=== PATIENT | male | born 1980 | race Caucasian/White ===

== ENCOUNTER → 2023-06-08 13:44 | Outpatient (CLI) | payer OTHER, SELFPAY ==
--- NOTE | 2023-06-08 13:47 | DI.MRI.S_ITS ---
PROCEDURE: MR ELBOW RT WO CON INDICATIONS: RIGHT BICEPS TENDINOPATHY TECHNIQUE: Noncontrast coronal proton density fast spin echo and T2 fast spin echo with fat saturation, axial and sagittal T1 spin echo and T2 fast spin echo with fat saturation through the elbow. COMPARISON: None. FINDINGS: Image quality: Excellent. Lateral structures: The lateral ulnar collateral ligament and radial collateral ligament both appear intact. Mild tendinosis of the common extensor tendon origin with focal, low-grade tear (series 6, image 18). Medial structures: The ulnar collateral ligament appears intact. The overlying common flexor tendon appears normal. The ulnar nerve appears normal in size and signal within the cubital tunnel. Anterior structures: The distal biceps tendon about the radial tuberosity is incompletely imaged on axial images, limiting evaluation. Otherwise the distal biceps tendon is unremarkable. No thickening or tear of the distal biceps tendon. No radial bicipital bursitis. The brachialis tendon is unremarkable. Posterior structures: The conjoint triceps tendon from the long and lateral heads appears intact. The medial head of the triceps tendon also appears normal, with direct muscle insertion onto the olecranon. No olecranon bursal fluid. Bone and cartilage: No bone marrow contusions or fractures. No osteochondral injuries. IMPRESSION: 1. Unremarkable distal biceps tendon. 2. Mild tendinosis of the common extensor tendon origin with focal, low-grade tear. Dictated by: Valarie Bazan M.D. on 06/08/2023 at 19:18 Approved by: Valarie Bazan M.D. on 06/08/2023 at 19:23
== END ==
PROVIDERS: PCP General Practice; Referring Provider Physical Medicine & Rehabilitation Pain Medicine; Visit Provider Physical Medicine & Rehabilitation Pain Medicine
DX: S56.511A Strain of other extensor muscle, fascia and tendon at forearm level, right arm, initial encounter (principal); M77.11 Lateral epicondylitis, right elbow
CPT/HCPCS: 73221